=== PATIENT | female | born 2000 | race Two or more races ===

== ENCOUNTER 2024-04-14 06:25 | Day surgery (SDC) | payer BC, SELFPAY ==
[2024-04-14] VITALS (18 sets, daily range): BP systolic 114–152; BP diastolic 71–107; BMI 26.9
[2024-04-14] MEDS: TRANSDERM-SCOP 1 PATCH TRANSDERM (08:33)
[2024-04-14] MEDS: NORMOSOL-R/PLASMALYTE-A 1000 IV (08:42)
[2024-04-14 09:03] LABS: HCG, Urine Qualitative Screen Negative
[2024-04-14] MEDS: DILAUDID 0.25 MG IV ×2 (12:16→12:51)
[2024-04-14] MEDS: DILAUDID 0.5 MG IV ×2 (12:38→13:10)
[2024-04-14] MEDS: APRESOLINE 5 MG IV (13:04)
[2024-04-14] MEDS: ROXICODONE 5 MG PO (14:35)
== END 2024-04-14 15:15 | disposition home or self-care (01) ==
LOC: SDS 06:25
PROVIDERS: ATTENDING PHYSICIAN Otolaryngology
DX: J32.9 Chronic sinusitis, unspecified (principal); J34.2 Deviated nasal septum; J34.3 Hypertrophy of nasal turbinates
CPT/HCPCS: 31257; 31256; 30520; 88304; 88311; 81025